=== PATIENT | male | born 1955 | race African-American/Black ===

== ENCOUNTER 2023-08-28 16:31 | Emergency (ER) | payer OTHER, MEDICARE ==
[~2023-08-28] VITALS: Ht 180.3 cm; Wt 93.0 kg
[2023-08-28] VITALS (7 sets, daily range): BP systolic 142–167; BP diastolic 91–106; PULSE 71–92; RESP 18; TEMP 98.3; O2SAT 93–94
[2023-08-28 17:30] LABS: BILIRUBIN,URINE NEGATIVE (NEGATIVE); LEUKOCYTE ESTERASE ,URINE NEGATIVE (NEGATIVE); NITRATE,URINE NEGATIVE (NEGATIVE); UROBILINOGEN,URINE 0.2 E.U./dL (0.2)
[2023-08-28 17:37] LABS: BASOPHIL % 0.2 % (0.0-0.2); EOSINOPHIL % 0.3 % (0.0-5.0); HEMATOCRIT(ML) 39.9 % (37.0-53.0); HEMOGLOBIN 13.5 g/dL (13.9-16.3); LYMPHOCYTES # 1.94 10^3/uL1 (1.0-4.8); LYMPHOCYTES % 30.9 % (24.0-44.0); MEAN CORP HGB 30.9 pg (26-34); MEAN CORP HGB CONCENTRATION 33.8 g/dL (33-36.5); MEAN CORP VOLUME 91.3 fL (78-100); MONOCYTES # 0.5 10^3/uL (0.3-0.8); NEUTROPHIL # 3.8 10^3/uL (1.8-7.7); PLATELET COUNT 255 10^3/uL (150-400); RED BLOOD CELL 4.37 10^6/uL (4.50-5.90); RED CELL DISTRIBUTION WIDTH 13.7 % (11.5-14.5); WHITE BLOOD CELL 6.3 10^3/uL (4.5-11.0)
[2023-08-28 17:38] LABS: APPEARANCE,URINE CLEAR; UA COLOR YELLOW
[2023-08-28 17:43] LABS: +ADD MANUAL DIFF(NO CHRG) NO
[2023-08-28 17:45] LABS: BUN/CREATININE RATIO 10.9 (10.0-20.0); CALCIUM 9.2 mg/dL (8.4-10.5); CARBON DIOXIDE 26.6 mmol/L (20.0-32); CREATININE SERUM 1.1 mg/dL (0.59-1.40); EST GFR, NON-AA 66.8 (>/=60); POTASSIUM 3.6 mmol/L (3.6-5.2)
[2023-08-28] MEDS ORDERED: TORADOL ONE (19:04)
[2023-08-28] MEDS ORDERED: NS 1000ML 1,000 ML ONE (19:04)
[2023-08-28] MEDS: NS 1000ML 1,000 ML STA (19:08)
[2023-08-28] MEDS: TORADOL IV STA (19:10)
== END 2023-08-28 19:47 | disposition home or self-care (01) ==
LOC: ER 16:31 → EDBD 16:31 → ER 19:47
DX: S12.401A Unspecified nondisplaced fracture of fifth cervical vertebra, initial encounter for closed fracture (principal); I71.23 Aneurysm of the descending thoracic aorta, without rupture; I10 Essential (primary) hypertension; V53.5XXA Driver of pick-up truck or van injured in collision with car, pick-up truck or van in traffic accident, initial encounter; Y93.89 Activity, other specified; Y92.488 Other paved roadways as the place of occurrence of the external cause; Y99.8 Other external cause status; F12.90 Cannabis use, unspecified, uncomplicated
CPT/HCPCS: 99285; 70450; 96374; 96361; 87086; 73130; 71275; 71250; 72125; 74177; 73030; 85025; 36415; 80048; 81001; J7030; J1885; Q9965 ×2

== ENCOUNTER 2023-08-30 09:19 | Emergency (ER) | payer MEDICARE ==
[~2023-08-30] VITALS: Ht 180.3 cm; Wt 90.7 kg
[2023-08-30 09:19] VITALS: BP 156/107; PULSE 94; RESP 20; TEMP 98.4; O2SAT 97
[2023-08-30] MEDS ORDERED: KETO10TA PO (09:36)
[2023-08-30] MEDS ORDERED: METH-621 PO (09:36)
[2023-08-30] MEDS ORDERED: ROBAXIN ONE (09:37)
[2023-08-30] MEDS ORDERED: TORADOL ONE (09:37)
[2023-08-30] MEDS: TORADOL IM STA (09:40)
[2023-08-30] MEDS: ROBAXIN PO STA (09:40)
[2023-08-30 09:50] VITALS: BP 162/99; PULSE 90; RESP 20; TEMP 98.4; O2SAT 97
== END 2023-08-30 09:50 | disposition home or self-care (01) ==
LOC: ER 09:19
DX: M54.2 Cervicalgia (principal); F12.90 Cannabis use, unspecified, uncomplicated
CPT/HCPCS: 99283; 96372; J2800; J1885